=== PATIENT | male | born 1980 | race Caucasian/White ===

== ENCOUNTER 2016-08-17 09:55 | Emergency (ER) | payer SELFPAY ==
--- NOTE | 2016-08-17 10:50 | ER Document Report ---
HPI - HPI Patient complains to provider of: right middle finger pain Onset: Yesterday Onset/Duration: Sudden Quality of pain: Achy Severity: Moderate Pain Level: 3 Context: Patient presents emergency department with complaints of right middle finger pain. Patient reports he was jumping on a trampoline with his child and hurt his finger. Patient is right-handed. Denies past medical history of injury to finger. Right 3rd finger DIP is in flexed position. Pt has splinted the finger himself. Associated Symptoms: None Exacerbated by: Denies Relieved by: Denies Similar symptoms previously: No Recently seen / treated by doctor: No - CARDIOVASCULAR Cardiovascular: DENIES: Chest pain - DERM Skin Color: Normal Past Medical History - General Information source: Patient - Social History Smoking Status: Never Smoker Chew tobacco use (# tins/day): No Frequency of alcohol use: None Drug Abuse: None Occupation: [employer] Lives with: Family Family History: Reviewed & Not Pertinent Patient has suicidal ideation: No Patient has homicidal ideation: No - Medical History Medical History: Negative Renal/ Medical History: Denies: Hx Peritoneal Dialysis Surgical Hx: Negative - Immunizations Hx Diphtheria, Pertussis, Tetanus Vaccination: Yes Vertical Provider Document - CONSTITUTIONAL Agree With Documented VS: Yes Exam Limitations: No Limitations General Appearance: WD/WN, No Apparent Distress - INFECTION CONTROL TRAVEL OUTSIDE OF THE [place] IN LAST 30 DAYS: No - HEENT HEENT: Atraumatic, Normocephalic - NECK Neck: Supple - RESPIRATORY Respiratory: No Respiratory Distress O2 Sat by Pulse Oximetry: 98 - CARDIOVASCULAR Cardiovascular: Regular Rate - MUSCULOSKELETAL/EXTREMETIES Musculoskeletal/Extremeties: Tender - Right 3rd digit dip in flexed position, no erythema/warmth, brisk cap refill, good radial pulse Course - Re-evaluation Re-evalutation: 08/17/16 11:12 No fracture noted on x-ray. Appears to be trigger finger. No erythema warmth or swelling over the DIP. Patient instructed on trigger finger. He was given written information regarding trigger finger. He was also instructed to follow- up with orthopedics for treatment that may include joint injections. - Vital Signs Vital signs: Temp Pulse Resp BP Pulse Ox 98.2 F 82 16 142/89 H 98 08/17/16 09:59 08/17/16 09:59 08/17/16 09:59 08/17/16 09:59 08/17/16 09:59 - Diagnostic Test Radiology reviewed: Image reviewed, Reports reviewed - no fracture Procedures - Immobilization Right 3rd digit Pre-Proc Neuro Vasc Exam: Normal Immobilizer type: Finger splint (Static) Performed by: PCT Post-Proc Neuro Vasc Exam: Unchanged from pre-exam Discharge - Discharge Clinical Impression: Elevated blood pressure reading Trigger finger of right hand Qualifiers: Trigger finger location: middle finger Qualified Code(s): M65.331 - Trigger finger, right middle finger Condition: Stable Disposition: HOME, SELF-CARE Instructions: Ibuprofen (General) ([facility]), Temporary Splint ([facility]) Additional Instructions: *You have been evaluated for finger injury, trigger finger *Maintain the splint *Rest/Ice/Elevate *Follow up with orthopedics this week-call for an appointment *Take medication as prescribed *Return to ED for worsening condition, changes, needs Prescriptions: Ibuprofen [Motrin 800 mg Tablet] 800 mg PO TID #30 tablet Forms: Elevated Blood Pressure, Return to Work Referrals: [facility] ([place] [Provider Group] - Follow up in 3-5 days
--- NOTE | 2016-08-17 10:51 | RADIOLOGY REPORT (SQ) ---
EXAM DESCRIPTION: FINGER RIGHT COMPLETED DATE/TIME: 08/17/2016 10:31 am REASON FOR STUDY: FINGER INJURY COMPARISON: None. NUMBER OF VIEWS: Three views. TECHNIQUE: AP, lateral, and oblique images acquired of the right third finger. LIMITATIONS: None. FINDINGS: MINERALIZATION: Normal. BONES: The distal interphalangeal joint is flexed somewhat. SOFT TISSUES: No soft tissue swelling. No foreign body. OTHER: No other significant finding. IMPRESSION: No osseous abnormality. The distal interphalangeal joint of the 3rd digit is flexed. I s there clinical evidence of an extensor tendon injury? COMMENT: SITE OF TRAUMA/COMPLAINT MARKED/STAMP COMPLETED: Yes TECHNICAL DOCUMENTATION: JOB ID: [id number] [employer]- All Rights Reserved
[2016-08-17 11:54] VITALS: BP 133/76
== END 2016-08-17 11:55 | disposition home or self-care (01) ==
LOC: ER 09:55
PROC: 2W3JX1Z Immobilization of Right Finger using Splint (ICD-10-PCS; principal; 2016-08-17)
DX: M65.331 Trigger finger, right middle finger (principal); R03.0 Elevated blood-pressure reading, without diagnosis of hypertension; M79.644 Pain in right finger(s); X58.XXXA Exposure to other specified factors, initial encounter
CPT/HCPCS: 99283